=== PATIENT | female | born 1990 | race Two or more races ===

== ENCOUNTER → 2024-10-24 | Emergency (ER) | payer OTHER ==
[~2024-10-24] VITALS: Ht 157.5 cm; Wt 66.7 kg
[~2024-10-24] MED LIST: DEXAMETHASONE SODIUM PHOSPHATE 4 MG/ML VIAL IM ONE
== END | disposition home or self-care (01) ==
LOC: ER 10:59
DX: T78.49XA Other allergy, initial encounter (principal); X32.XXXA Exposure to sunlight, initial encounter; Z88.0 Allergy status to penicillin